=== PATIENT | male | born 1965 | race Caucasian/White ===

== ENCOUNTER 2018-06-16 17:46 | Emergency (ER) | payer MEDICARE, MEDICAID ==
[~2018-06-16] VITALS: Ht 185.4 cm; Wt 149.0 kg
[~2018-06-16 17:46] MED LIST: BACDS PO; CEPH500C5 PO
[2018-06-16 17:50] VITALS: BP 149/72
--- NOTE | 2018-06-16 19:23 | NUR ---
packing and lac tray placed in room per provider
--- NOTE | 2018-06-16 20:09 | NUR ---
wound packed by PA and new gauze dressing placed.
== END 2018-06-16 20:21 | disposition home or self-care (01) ==
LOC: ER 17:46
DX: L02.415 Cutaneous abscess of right lower limb (principal); Z48.01 Encounter for change or removal of surgical wound dressing; E11.9 Type 2 diabetes mellitus without complications; Z88.5 Allergy status to narcotic agent; Z79.899 Other long term (current) drug therapy
CPT/HCPCS: 99282

== ENCOUNTER 2018-07-02 13:58 | Emergency (ER) | payer MEDICARE, MEDICAID ==
[~2018-07-02] VITALS: Ht 185.4 cm; Wt 143.2 kg
[2018-07-02 14:46] VITALS: BP 166/92
== END 2018-07-02 14:48 | disposition home or self-care (01) ==
LOC: ER 13:58
DX: Z48.01 Encounter for change or removal of surgical wound dressing (principal); E11.9 Type 2 diabetes mellitus without complications; F17.200 Nicotine dependence, unspecified, uncomplicated; F12.90 Cannabis use, unspecified, uncomplicated; Z88.6 Allergy status to analgesic agent
CPT/HCPCS: 99281

== ENCOUNTER 2020-03-01 16:11 | Emergency (ER) | payer MEDICARE, MEDICAID ==
[~2020-03-01] VITALS: Ht 185.4 cm; Wt 149.5 kg
[2020-03-01 16:38] VITALS: BP 138/85
[2020-03-01] MEDS ORDERED: BACI1PAC7 TOP (17:51)
== END 2020-03-01 18:01 | disposition home or self-care (01) ==
LOC: ER 16:12
DX: S30.1XXA Contusion of abdominal wall, initial encounter (principal); E11.9 Type 2 diabetes mellitus without complications; F17.210 Nicotine dependence, cigarettes, uncomplicated; F12.10 Cannabis abuse, uncomplicated; Z88.5 Allergy status to narcotic agent; Z79.899 Other long term (current) drug therapy; W18.39XA Other fall on same level, initial encounter; Y93.89 Activity, other specified; Y92.89 Other specified places as the place of occurrence of the external cause; Y99.8 Other external cause status
CPT/HCPCS: 99282

== ENCOUNTER 2020-05-21 15:16 | Emergency (ER) | payer MEDICARE, MEDICAID ==
[~2020-05-21] VITALS: Ht 185.4 cm; Wt 147.7 kg
--- NOTE | 2020-05-21 18:44 | NUR ---
VASCULAR AT BEDSIDE
[2020-05-21 19:26] VITALS: BP 108/79
== END 2020-05-21 19:30 | disposition home or self-care (01) ==
LOC: ER 15:16
DX: I80.01 Phlebitis and thrombophlebitis of superficial vessels of right lower extremity (principal); M79.661 Pain in right lower leg; E11.9 Type 2 diabetes mellitus without complications; F12.90 Cannabis use, unspecified, uncomplicated; Z98.890 Other specified postprocedural states; Z72.89 Other problems related to lifestyle; Z88.5 Allergy status to narcotic agent
CPT/HCPCS: 93971; 99284

== ENCOUNTER 2021-06-14 16:36 | Emergency (ER) | payer MEDICARE, MEDICAID ==
[~2021-06-14] VITALS: Ht 185.4 cm; Wt 145.6 kg
[2021-06-14 22:57] VITALS: BP 130/75
[2021-06-15] MEDS ORDERED: enoxaparin 100mg/ml syringe SUBCUT ONE (00:20)
[2021-06-15] MEDS ORDERED: apixaban 5mg tablet PO ONE (00:25)
[2021-06-15] MEDS ORDERED: APIX5TAB3 PO (00:28)
== END 2021-06-15 01:02 | disposition home or self-care (01) ==
LOC: ER 16:37
DX: I82.401 Acute embolism and thrombosis of unspecified deep veins of right lower extremity (principal); E11.9 Type 2 diabetes mellitus without complications; F12.90 Cannabis use, unspecified, uncomplicated; Z72.89 Other problems related to lifestyle; Z88.8 Allergy status to other drugs, medicaments and biological substances; Z79.899 Other long term (current) drug therapy
CPT/HCPCS: 93971; 96372; 99284; J1650

== ENCOUNTER 2022-03-27 11:28 | Emergency (ER) | payer MEDICARE, MEDICAID ==
[~2022-03-27] VITALS: Ht 185.4 cm; Wt 320.0 kg
[~2022-03-27 11:28] MED LIST changes: +APIX5TAB3 PO; -BACDS PO; -CEPH500C5 PO
[2022-03-27 11:43] VITALS: BP 171/96
[2022-03-27] MEDS ORDERED: SULF1TAB49 PO (15:02)
[2022-03-27] MEDS ORDERED: mupirocin 2% ointment 22GM TP STA (15:03)
[2022-03-27] MEDS ORDERED: sulfamethoxazole/trimethoprim DS (800/160mg) tablet PO ONE (15:05)
== END 2022-03-27 15:23 | disposition home or self-care (01) ==
LOC: ER 11:28
DX: L02.01 Cutaneous abscess of face (principal); E11.9 Type 2 diabetes mellitus without complications; F12.90 Cannabis use, unspecified, uncomplicated; Z88.5 Allergy status to narcotic agent
CPT/HCPCS: 99283

== ENCOUNTER 2022-09-08 04:20 | Emergency (ER) | payer MEDICARE, MEDICAID ==
[~2022-09-08] VITALS: Ht 185.4 cm; Wt 145.4 kg
[2022-09-08 04:22] VITALS: BP 155/91
[2022-09-08] MEDS ORDERED: proparacaine 0.5% ophthalmic drops 15ml RIGHTEYE ONE (07:10)
[2022-09-08] MEDS ORDERED: ERYT1OIN6 RIGHTEYE (07:52)
[2022-09-08] MEDS ORDERED: HYDR-3973 PO (07:52)
[2022-09-08] MEDS ORDERED: erythromycin ophthalmic ointment 1gm tube RIGHTEYE ONE (07:55)
== END 2022-09-08 08:29 | disposition home or self-care (01) ==
LOC: ER 04:20
DX: S05.01XA Injury of conjunctiva and corneal abrasion without foreign body, right eye, initial encounter (principal); E11.9 Type 2 diabetes mellitus without complications; F17.200 Nicotine dependence, unspecified, uncomplicated; F12.10 Cannabis abuse, uncomplicated; X58.XXXA Exposure to other specified factors, initial encounter; Y93.89 Activity, other specified; Y92.89 Other specified places as the place of occurrence of the external cause; Y99.8 Other external cause status
CPT/HCPCS: 99283

== ENCOUNTER 2023-10-11 14:42 | Emergency (ER) | payer MEDICARE, MEDICAID ==
[~2023-10-11] VITALS: Ht 185.4 cm; Wt 125.6 kg
[2023-10-11] MEDS ORDERED: NAPR-56 PO (17:52)
[2023-10-11 18:04] VITALS: BP 160/78; PULSE 58; RESP 18; TEMP 97.8; O2SAT 100
== END 2023-10-11 18:11 | disposition home or self-care (01) ==
LOC: ER 14:42
DX: M25.561 Pain in right knee (principal); M71.21 Synovial cyst of popliteal space [Baker], right knee; E11.9 Type 2 diabetes mellitus without complications; Z72.89 Other problems related to lifestyle; F12.90 Cannabis use, unspecified, uncomplicated; Z86.718 Personal history of other venous thrombosis and embolism; Z88.8 Allergy status to other drugs, medicaments and biological substances
CPT/HCPCS: 73564; 93971; 99284

== ENCOUNTER 2024-07-05 21:46 | Emergency (ER) | payer MEDICARE, MEDICAID ==
[~2024-07-05] VITALS: Ht 185.4 cm; Wt 109.0 kg
[2024-07-05 22:36] LABS: BASOPHILS % (AUTO) 0.7 % (0-1); EOSINOPHILS % (AUTO) 0.9 % (0-6); HEMATOCRIT 43.1 % (42.0-52.0); HEMOGLOBIN 14.5 g/dl (14.0-17.9); LYMPHOCYTES # (AUTO) 0.9 X10'3 (1.1-4.8); LYMPHOCYTES % (AUTO) 23.8 % (21-51); MEAN CORPUSCULAR HEMOGLOBIN 30.5 PG (27.0-31.0); MEAN CORPUSCULAR HGB CONC 33.6 g/dL (33.0-36.5); MEAN CORPUSCULAR VOLUME 90.7 FL (78-98); MONOCYTES # (AUTO) 0.6 X10'3 (0-0.9); MONOCYTES % (AUTO) 15.8 % (2-12); NEUTROPHILS # (AUTO) 2.2 X10'3 (1.8-7.7); NEUTROPHILS % (AUTO) 58.8 % (42-75); PLATELET COUNT 176 X10'3 (140-440); RED BLOOD COUNT 4.76 X10'6 (4.70-6.10); RED CELL DISTRIBUTION WIDTH 13.9 % (11.5-14.5); WHITE BLOOD COUNT 3.8 X10'3 (4.5-11.0)
[2024-07-05 22:52] LABS: ALANINE AMINOTRANSFERASE 23 U/L (12-78); ALBUMIN 3.7 G/DL (3.4-5.0); ALBUMIN/GLOBULIN RATIO 1.1 (1.1-1.5); ALKALINE PHOSPHATASE 64 IU/L (46-116); ANION GAP 7 (8-16); ASPARTATE AMINO TRANSFERASE 28 U/L (10-37); BILIRUBIN,TOTAL 0.4 MG/DL (0.1-1.0); BLOOD UREA NITROGEN 9 MG/DL (7-18); BUN/CREATININE RATIO 9.7 (10.0-20.0); CALCIUM 8.8 MG/DL (8.5-10.1); CHLORIDE 102 MMOL/L (99-107); CREATININE 0.93 MG/DL (0.60-1.10); GLUCOSE 95 MG/DL (70-104); LIPASE 16 U/L (16-77); POTASSIUM 3.9 MMOL/L (3.5-5.1); SODIUM 138 MMOL/L (135-145); TOTAL CARBON DIOXIDE 28.9 MMOL/L (24-32); TOTAL PROTEIN 7.1 G/DL (6.4-8.2); eCRCL 99 ML/MIN; eGFR 84 ML/MIN
[2024-07-05 23:41] VITALS: TEMP 96.8
[2024-07-05 23:57] LABS: BILIRUBIN,URINE NEGATIVE (Neg); CLARITY,URINE CLEAR (Clear); COLOR,URINE YELLOW (Yellow); GLUCOSE, URINE NEGATIVE (Neg); KETONES,URINE TRACE mg/dl (Neg); LEUKOCYTE ESTERASE ,URINE NEGATIVE (Neg); NITRITES, URINE NEGATIVE (Neg); OCCULT BLOOD,URINE NEGATIVE (Neg); PROTEIN,URINE NEGATIVE (Neg)
[2024-07-05 23:58] LABS: UA COLLECTION TYPE CLN CATCH MIDSTREAM
[2024-07-06] MEDS ORDERED: BISA-78 PO (00:38)
[2024-07-06] MEDS ORDERED: POLY119P2 PO (00:38)
[2024-07-06 00:48] VITALS: BP 110/71; PULSE 71; RESP 16; O2SAT 98
[2024-07-06] MEDS: bisacodyl 5mg tablet.DR PO ONE (00:56)
== END 2024-07-06 01:01 | disposition home or self-care (01) ==
LOC: ER 21:47
DX: K59.00 Constipation, unspecified (principal); E11.9 Type 2 diabetes mellitus without complications; F12.90 Cannabis use, unspecified, uncomplicated; Z98.890 Other specified postprocedural states; Z88.5 Allergy status to narcotic agent
CPT/HCPCS: 80053; 81003; 83690; 85025; 99283

== ENCOUNTER 2024-10-25 01:43 | Emergency (ER) | payer MEDICARE, MEDICAID ==
[~2024-10-25] VITALS: Ht 185.4 cm; Wt 111.8 kg
[~2024-10-25 01:43] MED LIST changes: -APIX5TAB3 PO; +BISA-78 PO; +POLY119P2 PO
[2024-10-25 01:45] VITALS: TEMP 97.4
--- NOTE | 2024-10-25 02:00 | Physician Documentation ---
History of Present Illness ~ Chief Complaint: Abscess Stated Complaint: LEG ABCESS Time Seen by MD: 02:00 Primary Medical Doctor: [facility] Patient presents to the emergency room for evaluation of abscess in his proximal right leg. He has had abscesses associated with this area before. No fevers. Symptoms has been worsening over the past two days. Tetanus Within 5 Years: No Medication Reconciliation Allergies: Coded Allergies: codeine (Verified Allergy, Unknown, 10/25/24) Scheduled Bisacodyl (Dulcolax), 4 TAB PO ONCE Polyethylene Glycol 3350 (Miralax), 17 GM PO DAILY Past Medical History Past Medical History: *CARDIOVASCULAR*, Diabetes Past Surgical History: no surgical history, orthopedic surgeries Alcohol Use: Occasionally Drug Use: marijuana Lives In: Home Occupation: employed Review of Systems ROS All review of systems negative except as per HPI Physical Exam Vital Signs: Temperature: 97.4, Source: Temporal, Heart Rate: 70, Respiratory Rate: 16, BP: 129/64, Pulse Oximetry: 98, Weight: 111.800 Oxygen Flow Rate: 0 Physical Exam General: Patient is awake, alert, oriented x4 in no acute distress Head: Normocephalic and atraumatic. Eyes: Conjunctival normal. EOMI. PERRL. ENT: Mucous membranes moist. Neck: Supple, trachea is midline. Chest: Clear to auscultation bilaterally without rales, rhonchi, or wheezes. There is no accessory muscle use or retractions. Cardiac: RRR without murmurs, gallops, or rubs. Extremities: 3 x 3 fluctuant abscess to his proximal right thigh. No cellulitis Procedures Procedures Incision and drainage: Status post informed verbal consent patient was sterilely cleaned and draped. 1% lidocaine with epinephrine was utilized to anesthetize patient to a total of 3 cc. 11. Blade utilized to perform incision and drainage leaving a star-shaped incision. A proximally 3 cc of purulent discharge expressed along with some blood. De loculated with sterile probe. Packing placed. Antibiotic ointment and bandage placed. Patient tolerated procedure well without complication. Total time of procedure 10 minutes Progress Results/Orders Results/Orders Completed Orders - ROBERT OROSCO MD Ondansetron Disint. Tablet (Zofran Odt T (10/25/24 02:05) Cephalexin Capsule (Keflex Capsule) (10/25/24 02:05) Medications Received in ER Medications (Trade) Dose Ordered Sig/Lindsay Route PRN Reason Start Time Stop Time Status Last Admin Dose Admin (Zofran ODT tablet) 4 mg ONCE ONCE PO 10/25/24 02:05 10/25/24 02:06 DC 10/25/24 02:14 4 MG (Keflex capsule) 500 mg ONCE ONCE PO 10/25/24 02:05 10/25/24 02:06 DC 10/25/24 02:14 500 MG Vital Signs 10/25/24 01:45 Temp 97.4 Pulse 70 Resp 16 B/P (MAP) 129/64 Pulse Ox 98 O2 Flow Rate 0 Medical Decision Making Findings Patient presents to the emergency room with abscess as per HPI. Differentials include but are not limited to abscess, sebaceous cyst, cellulitis, perirectal abscess. Patient's abscess with superficial therefore incision drainage was done. Packing placed and patient has been instructed to have packing removed in 2-3 days. ER precautions regarding worsening of symptoms or fevers discussed. Given location of patient's abscess we will cover with antibiotics Departure Disposition: 01 HOME / SELF CARE / HOMELESS Impression: Primary Impression: Abscess Condition: Stable Discharge Instructions: Abscess, Care After Additional Instructions: Finish all antibiotics Referrals: NO PRIMARY CARE PROVIDER (PCP) Prescriptions Cephalexin*Monohydrate* (Keflex*) 500 Mg Capsule 1 CAP PO Q12H for 10 Days, #20 CAP Prov: ROBERT OROSCO MD 10/25/24 Education Educated: Patient Educated regarding: diagnosis, treatment, need for follow up Signature Scribe Signature: No scribe Attestation: The note accurately reflects work and decisions made by me.Robert Orosco MD 10/25/24 02:51 ROBERT OROSCO MD Oct 25, 2024 02:00
[2024-10-25] MEDS: ondansetron 4mg rapidly disintigrating tab PO ONE (02:14)
[2024-10-25] MEDS ORDERED: CEPH-585 PO (02:51)
[2024-10-25] MEDS: bacitracin 15gm ointment TP ONE (02:53)
[2024-10-25 03:01] VITALS: BP 140/73; PULSE 62; RESP 18; O2SAT 99
[2024-10-26] MEDS ORDERED: CEPH-585 PO (11:29)
== END 2024-10-25 03:04 | disposition home or self-care (01) ==
LOC: ER 01:44
DX: L02.415 Cutaneous abscess of right lower limb (principal); E11.9 Type 2 diabetes mellitus without complications; Z88.5 Allergy status to narcotic agent
CPT/HCPCS: 10060; 99283; A6258; A6266; A6402; Z7610; A6449

== ENCOUNTER 2025-01-26 12:06 | Emergency (ER) | payer MEDICARE, MEDICAID ==
[~2025-01-26] VITALS: Ht 185.4 cm; Wt 106.8 kg
[~2025-01-26 12:06] MED LIST changes: +CEPH-585 PO
[2025-01-26 12:11] VITALS: BP 148/67; PULSE 60; RESP 17; TEMP 98; O2SAT 99
[2025-01-26] MEDS: erythromycin ophthalmic ointment 1gm tube LEFTEYE ONE (13:26)
[2025-01-26] MEDS: proparacaine 0.5% ophthalmic drops 15ml LEFTEYE ONE (13:26)
[2025-01-26] MEDS ORDERED: ERYT1OIN6 LEFTEYE (13:33)
--- NOTE | 2025-01-26 13:35 | Physician Documentation ---
History of Present Illness ~ Chief Complaint: Eye Pain Stated Complaint: L EYE PAIN Time Seen by MD: 12:44 Primary Medical Doctor: [facility] Source: patient Mode of Arrival: POV Exam Limitations: no limitations HPI 59-year-old male with chief complaint left eye pain which started Monday when he was barbecuing he states he felt like he got something in his eye but then his pain resolved so he figured it came out. He reports Monday when he woke up he started to have some pain in the eye again which persisted throughout the day and then last night the pain got worse prompting him to come to the ER today. He states he also woke up this morning in his eye was really gunky and I had to get a wash cough in order to get my eye open. he denies any photophobia or vision changes. He does not wear contacts. No pre arrival treatment. Medication Reconciliation Allergies: Coded Allergies: codeine (Verified Allergy, Severe, welts, airway swelling, 01/26/25) Scheduled Bisacodyl (Dulcolax), 4 TAB PO ONCE Cephalexin*Monohydrate* (Keflex*), 1 CAP PO Q12H Polyethylene Glycol 3350 (Miralax), 17 GM PO DAILY Past Medical History Past Medical History: *CARDIOVASCULAR*, Diabetes Past Surgical History: no surgical history, orthopedic surgeries Alcohol Use: Occasionally Drug Use: marijuana Lives In: Home Occupation: employed Review of Systems All Other Systems at this time: Reviewed and Negative Physical Exam Vital Signs: Temperature: 98.0, Source: Temporal, Heart Rate: 60, Respiratory Rate: 17, BP: 148/67, Pulse Oximetry: 99, Weight: 106.800 Oxygen Flow Rate: 0 Physical Exam General Appearance: Alert, WD/WN. NAD. HEENT: NCAT, PERRL, EOMI. Left bulbar conjunctiva diffuse injection with some increased tearing. Left lower eyelid at the palpebra conjunctiva there is a dark foreign body measuring about 3 mm in diameter. This was easily removed with a sterile cotton qtip. I was unable to do a fluorescein exam as there is a nationwide shortage of fluorescein. Neck: Supple, trachea midline. Cardiovascular: RRR. No m/r/g. Lungs: CTAB. Breathing unlabored Extremities: Normal inspection. No edema. Skin: Warm/dry, normal color Neurological: Alert and oriented x4, normal gait. Psychiatric: Affect congruent with mood. Procedures Eye Procedure Alcaine Drops Administered: Yes Foreign Body/Rust Ring Removal: removal w/ cotton swab Reexamination after removal: other (unable to assess for abrasion due to lack of fluorescein) Cyclogel Drops Administered: left eye Tolerated Procedure Well?: yes, no complications Progress Results/Orders Results/Orders Orders - GAUTAM WALTERS Eye Procedure (01/26/25 12:50) Completed Orders - GAUTAM WALTERS Erythromycin Ophth Ointment (Ilotycin Op (01/26/25 12:50) Proparacaine Ophth Solution (Alcaine Oph (01/26/25 12:50) Vital Signs 01/26/25 12:11 Temp 98.0 Pulse 60 Resp 17 B/P (MAP) 148/67 Pulse Ox 99 O2 Flow Rate 0 Medical Decision Making Eye Diff. Dx: Considerations: Include: Chalaz[place], Conjuctivits-allergic, Co njuctivitis-bacterial, Conjuctivits-chlamydial, Conjuctivitis-viral, Corneal abrasion, Corneal laceration, Corneal ulceration, Foreign body-conjuctiva, Foreign body-corneal, Foreign body-intraocular, Foreign body-lid, Glaucoma, Globe rupture, Hordeolum, Iritis, Orbital cellulitis, Periobital cellulitis, Retinal artery occulsion, Retinal vein occlusion, Rust ring, Subconjunctival he m, Ultraviolet keratitis, Uveitis, Vitreous hemorrhage, Other Departure Time of Disposition: 13:33 Disposition: 01 HOME / SELF CARE / HOMELESS Impression: Primary Impression: Foreign body in site on external eye Qualified Codes: T15.92XA - Foreign body on external eye, part unspecified, left eye, initial encounter Condition: Stable Discharge Instructions: Eye Foreign Body, [id number] Additional Instructions: ERYTHROMYCIN OINTMENT TO AREA TO COVER FOR ABRASION IF INCREASING PAIN, VISION CHANGES RETURN TO ER Referrals: NO PRIMARY CARE PROVIDER (PCP) Prescriptions Erythromycin Base Opth. Ointment* (Erythromycin Opth. Ointment*) 1 Gm Tube 1 APPLIC LEFTEYE [id number], #1 EACH Prov: GAUTAM WALTERS 01/26/25 Education Educated: Patient Educated regarding: diagnosis, treatment, need for follow up Signature Scribe Signature: X Attestation: X GAUTAM WALTERS Jan 26, 2025 13:35
== END 2025-01-26 13:50 | disposition home or self-care (01) ==
LOC: ER 12:07
DX: T15.82XA Foreign body in other and multiple parts of external eye, left eye, initial encounter (principal); F12.90 Cannabis use, unspecified, uncomplicated; E11.9 Type 2 diabetes mellitus without complications; Z88.5 Allergy status to narcotic agent; Z79.899 Other long term (current) drug therapy; Z98.890 Other specified postprocedural states; Z72.89 Other problems related to lifestyle
CPT/HCPCS: 65205; 99284